=== PATIENT | female | born 2000 | race Caucasian/White ===

== ENCOUNTER 2022-03-06 00:08 | Emergency (ER) | payer OTHER, SELFPAY ==
[2022-03-06 00:34] VITALS: BP 116/76; PULSE 114; RESP 18; TEMP 37.4; O2SAT 99; BMI 19.7
[2022-03-06 01:14] LABS: Appearance Urine Turbid; Color Urine Yellow; Glucose Urine UA Negative (Negative); Nitrite Urine Negative (Negative); Urine Blood Trace (Negative); Urine Ketones Negative (Negative); Urine Protein 30 (1+) mg/dL (Neg-Trace)
[2022-03-06 01:15] LABS: Bacteria Urine None Seen (None Seen); Leukocyte Esterase Urine Negative (Negative); RBC Urine 0-2 /HPF (0-2); Squamous Epithelial Cell Urine 0-2 /HPF (0-2); UMIC TRIGGER UACC YES; WBC Urine 0-5 /HPF (0-5)
[2022-03-06 01:16] LABS: Hyaline Casts Urine 0-2 /LPF (0-2)
[2022-03-06 01:18] LABS: UPreg QC Valid YES; Urine Pregnancy NEGATIVE (NEGATIVE)
--- NOTE | 2022-03-06 01:35 | ED_ITS ---
HPI - Female Genitourinary General Chief complaint: Urogenital-Female Stated complaint: Possible UTI Time Seen by Provider: 03/06/22 01:35 Source: patient Mode of arrival: ambulatory Limitations: no limitations History of Present Illness HPI Narrative: With history of frequent UTI sexually active comes here for 2- 3 days of his frequency and dysuria with low back pain low-grade fever cough did home COVID test was negative, patient is not vaccinated against COVID no other family member sick no vomiting no nausea no diarrhea Related Data Previous Rx's Medication Instructions Recorded benzonatate 200 mg capsule 200 mg PO TID PRN cough #30 caps 03/06/22 ibuprofen 600 mg tablet 600 mg PO Q6H PRN fever or pain 03/06/22 #30 tabs Allergies Allergy/AdvReac Type Severity Reaction Status Date / Time No Known Allergies Allergy Verified 03/06/22 01:44 Review of Systems Review of Systems: Yes all other systems are reviewed and are negative PMFSH Social History Social History Advance Directives: No Advance Directives Information Provided: No Physical Exam Vital Signs: Vital Signs: Last Vital Signs Temp 99.4 F 03/06/22 00:34 Pulse 114 H 03/06/22 00:34 Resp 18 03/06/22 00:34 BP 116/76 03/06/22 00:34 Pulse Ox 99 03/06/22 00:34 O2 Del Method 03/06/22 00:34 BMI result Body Mass Index 19.7 Appearance: Alert. Oriented X3. No acute distress. ENT: Pharynx normal. Oral Mucosa moist Neck: Normal inspection. Neck supple. CVS: Normal heart rate and rhythm. Pulses normal. Respiratory: No respiratory distress. Equal air entry bilateral, no wheezing/rales/rhonchi Abdomen: Soft and nontender. Bowel sounds are present, no cva tenderness Skin: Skin warm and dry. Normal skin color. Normal skin turgor. Extremities: No lower extremity edema. No calf tenderness No motor deficit. No sensory deficit.No cerebellar signs , cranial nerves II-XII intact MDM - Female Genitourinary MDM Narrative Medical decision making narrative: Patient COVID positive saturating 99% on room air UA negative for UTI discharge patient on supportive treatment Lab Data Attestation: I reviewed the patient's lab results. Labs: Lab Results 10/28/22 10/28/22 10/28/22 Range/Units 00:40 00:41 01:53 Urine Color Yellow Urine Appearance Turbid Urine pH 8.0 (5.0-9.0) Ur Specific [place] 1.020 (1.005-1.025) Urine Protein 30 (1+) H (Neg-Trace) mg/dL Urine Glucose (UA) Negative (Negative) mg/dL Urine Ketones Negative (Negative) mg/dL Urine Blood Trace H (Negative) Urine Nitrite Negative (Negative) Ur Leukocyte Esterase Negative (Negative) Urine RBC 0-2 (0-2) /HPF Urine WBC 0-5 (0-5) /HPF Ur Squamous Epith Cells 0-2 (0-2) /HPF Urine Bacteria None Seen (None Seen) Hyaline Casts 0-2 (0-2) /LPF Urine Test NEGATIVE (NEGATIVE) COVID-19 (GERA) (Negative) COVID-19 Clin Com S. pyogenes GrpA MELISSA Negative (Negative) 03/06/22 Range/Units 01:53 Urine Color Urine Appearance Urine pH (5.0-9.0) Ur Specific [place] (1.005-1.025) Urine Protein (Neg-Trace) mg/dL Urine Glucose (UA) (Negative) mg/dL Urine Ketones (Negative) mg/dL Urine Blood (Negative) Urine Nitrite (Negative) Ur Leukocyte Esterase (Negative) Urine RBC (0-2) /HPF Urine WBC (0-5) /HPF Ur Squamous Epith Cells (0-2) /HPF Urine Bacteria (None Seen) Hyaline Casts (0-2) /LPF Urine Test (NEGATIVE) COVID-19 (GERA) Positive A (Negative) COVID-19 Clin Com See Note S. pyogenes GrpA MELISSA (Negative) Discharge Plan Discharge Clinical Impression: COVID-19 Patient Disposition: Home, Self-Care Instructions: COVID-19 (Coronavirus Disease 2019) (ED) Additional Instructions: Keep hydrated Tylenol/Motrin for fever Cough drops as prescribed Self-isolation as advised Report to the ER if shortness of breath Prescriptions: New benzonatate 200 mg capsule 200 mg PO TID PRN (Reason: cough) Qty: 30 0RF ibuprofen 600 mg tablet 600 mg PO Q6H PRN (Reason: fever or pain) Qty: 30 0RF Stand Alone Forms: Work/School Release Interventions: ED Discharge Assessment Last Done: 03/06/22 03:25 Discharge Date/Time: 03/06/22 03:33
[2022-03-06] MEDS: Ibuprofen 600 MG TABLET PO (01:52)
[2022-03-06] MEDS: Phenazopyridine HCL 200 MG TABLET PO (01:52)
[2022-03-06 02:16] LABS: Strep A Nucleic Acid Negative (Negative)
[2022-03-06 02:17] LABS: COVID-19 Test Positive (Negative); IDNOW Serial# 16C4AD1C
== END 2022-03-06 03:33 | disposition home or self-care (01) ==
PROVIDERS: Emergency Provider Internal Medicine
DX: U07.1 COVID-19 (principal); R35.0 Frequency of micturition; R30.0 Dysuria; Z79.899 Other long term (current) drug therapy
CPT/HCPCS: 81001; 81025; 87635; 87651; 99283